=== PATIENT | female | born 1975 | race Caucasian/White ===

== ENCOUNTER 2025-01-28 19:58 | Emergency (ER) | payer BC, MEDICAID ==
[~2025-01-28] VITALS: Ht 162.6 cm; Wt 73.9 kg
[~2025-01-28 19:58] MED LIST: HYDR-4383 PO; NO HOME MEDS
[2025-01-28 20:04] VITALS: BP 101/73; PULSE 106; RESP 18; TEMP 98.1; O2SAT 97
[2025-01-28 20:28] LABS: BASOPHILS # (AUTO) 0.1 X10'3 (0-0.2); EOSINOPHILS # (AUTO) 0.4 X10'3 (0-0.9); EOSINOPHILS % (AUTO) 3.6 % (0-6); HEMATOCRIT 41.8 % (35.0-45.0); HEMOGLOBIN 14.2 g/dl (12.0-16.0); LYMPHOCYTES # (AUTO) 3.9 X10'3 (1.1-4.8); LYMPHOCYTES % (AUTO) 37.2 % (21-51); MEAN CORPUSCULAR HEMOGLOBIN 31.1 PG (27.0-31.0); MEAN CORPUSCULAR HGB CONC 33.9 g/dL (33.0-36.5); MEAN CORPUSCULAR VOLUME 91.8 FL (78-98); MEAN PLATELET VOLUME 9.1 FL (7.4-10.4); MONOCYTES # (AUTO) 0.9 X10'3 (0-0.9); MONOCYTES % (AUTO) 8.2 % (2-12); NEUTROPHILS # (AUTO) 5.3 X10'3 (1.8-7.7); PLATELET COUNT 341 X10'3 (140-440); RED BLOOD COUNT 4.55 X10'6 (4.20-5.60); RED CELL DISTRIBUTION WIDTH 12.9 % (11.5-14.5); WHITE BLOOD COUNT 10.6 X10'3 (4.5-11.0)
[2025-01-28 20:51] LABS: ALANINE AMINOTRANSFERASE 101 U/L (12-78); ALBUMIN 3.7 G/DL (3.4-5.0); ALBUMIN/GLOBULIN RATIO 0.9 (1.1-1.5); ALKALINE PHOSPHATASE 85 IU/L (46-116); ANION GAP 12 (8-16); ASPARTATE AMINO TRANSFERASE 50 U/L (10-37); BILIRUBIN,TOTAL 0.2 MG/DL (0.1-1.0); BLOOD UREA NITROGEN 35 MG/DL (7-18); BUN/CREATININE RATIO 32.1 (10.0-20.0); CALCIUM 8.8 MG/DL (8.5-10.1); CHLORIDE 107 MMOL/L (99-107); CREATININE 1.09 MG/DL (0.40-0.90); GLUCOSE 125 MG/DL (70-104); POTASSIUM 4.4 MMOL/L (3.5-5.1); SODIUM 141 MMOL/L (135-145); TOTAL CARBON DIOXIDE 22.4 MMOL/L (24-32); TOTAL PROTEIN 7.9 G/DL (6.4-8.2); eCRCL 54 ML/MIN; eGFR 53 ML/MIN
[2025-01-28 21:01] LABS: PRO BRAIN NATRIURETIC PEPTIDE 44 PG/ML (0-125)
== END 2025-01-28 21:56 | disposition left against medical advice (07) ==
LOC: ER 19:58
DX: R07.9 Chest pain, unspecified (principal); R06.02 Shortness of breath; Z88.5 Allergy status to narcotic agent; Z88.8 Allergy status to other drugs, medicaments and biological substances; Z53.21 Procedure and treatment not carried out due to patient leaving prior to being seen by health care provider
CPT/HCPCS: 36415; 80053; 83880; 84484; 85025; 93005

== ENCOUNTER 2025-03-17 18:55 | Emergency (ER) | payer MEDICAID ==
[~2025-03-17] VITALS: Ht 162.6 cm; Wt 72.0 kg
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
[2025-03-17] MEDS: naproxen 500mg tablet PO ONE (19:36)
[2025-03-17] MEDS: HYDROcodone/acetaminophen 10/325mg tab PO ONE (19:37)
--- NOTE | 2025-03-17 20:13 | RADIOLOGY REPORT ---
CHEST RADIOGRAPH Indication: Trauma Technique: Single frontal view of the chest was obtained COMPARISON: None FINDINGS: Lines and Tubes: None Lungs: Clear Pleura: No effusion. No pneumothorax. Cardiomediastinal contours: Unremarkable Bones: Unremarkable IMPRESSION: No abnormality demonstrated.
--- NOTE | 2025-03-17 20:14 | RADIOLOGY REPORT ---
CLINICAL INDICATION: Trauma TECHNIQUE: DI KNEE, COMP 4 VW MIN Comparison: None FINDINGS: No evidence of joint effusion, fracture or dislocation. Joint spaces are normal. Evidence of a small low-aggressivity chondroid lesion in proximal fibula. IMPRESSION: No fracture or dislocation.
--- NOTE | 2025-03-17 21:10 | RADIOLOGY REPORT ---
CLINICAL INDICATION: Scaphoid view TECHNIQUE: 1 radiographic views of the right wrist were obtained. Comparison: None FINDINGS/IMPRESSION: There is no evidence of acute fracture or dislocation. The visualized joint space is well maintained. The alignment is anatomical. There is no radiopaque foreign body.
[2025-03-17] MEDS: cyclobenzaprine 10mg tablet PO ONE (21:56)
[2025-03-17 22:08] VITALS: BP 110/83; PULSE 72; RESP 16; TEMP 98.4; O2SAT 100
--- NOTE | 2025-03-18 00:50 | RADIOLOGY REPORT ---
Clinical History Trauma Comparison None Without Contrast PERRI CELESTIN, [id number] X-ray hip Clinical history: 49-year-old trauma Findings: No acute fracture. Impression: Normal hip. This report was electronically signed by George Reis MD on 03/18/2025 12:46:22 AM.
--- NOTE | 2025-03-18 00:54 | RADIOLOGY REPORT ---
Clinical History Trauma Comparison None Without Contrast PERRI CELESTIN, [id number] X-ray Wrist Clinical history: 49-year-old Findings: There is a lucency extending transversely across the waist of the navicular Impression: Undisplaced fracture, navicular. This report was electronically signed by George Reis MD on 03/18/2025 12:50:45 AM.
== END 2025-03-17 22:11 | disposition home or self-care (01) ==
LOC: ER 18:56
DX: S62.001A Unspecified fracture of navicular [scaphoid] bone of right wrist, initial encounter for closed fracture (principal); S80.212A Abrasion, left knee, initial encounter; S70.212A Abrasion, left hip, initial encounter; E11.9 Type 2 diabetes mellitus without complications; F15.90 Other stimulant use, unspecified, uncomplicated; J44.9 Chronic obstructive pulmonary disease, unspecified; Z88.5 Allergy status to narcotic agent; Z90.710 Acquired absence of both cervix and uterus; W22.09XA Striking against other stationary object, initial encounter; Y93.89 Activity, other specified; Y92.89 Other specified places as the place of occurrence of the external cause; Y99.8 Other external cause status
CPT/HCPCS: 71045; 73100; 73110; 73502; 73564; 99284